=== PATIENT | male | born 1965 | race Hispanic/Latino ===

== ENCOUNTER → 2025-08-21 | Outpatient (RCR) | payer OTHER | LOC: PT 08-09 08:41 | PROVIDERS: ATTEND Specialist | DX: M17.12 Unilateral primary osteoarthritis, left knee (principal); M62.81 Muscle weakness (generalized); R26.2 Difficulty in walking, not elsewhere classified; M25.562 Pain in left knee; M25.662 Stiffness of left knee, not elsewhere classified ==